=== PATIENT | female | born 1980 | race Caucasian/White ===

== ENCOUNTER 2019-09-09 20:41 | Emergency (ER) | payer OTHER ==
[2019-09-09] MEDS ORDERED: ONDANSETRON 4 MG TAB.RAPDIS PO ONE (20:59)
[2019-09-09] MEDS ORDERED: ASPIRIN 81 MG TABLET, CHEWABLE PO ONE (20:59)
--- NOTE | 2019-09-09 21:01 | ER Document Report ---
ED Medical Screen (RME) - General Chief Complaint: Chest Pain Stated Complaint: CHEST PAIN,SHORTNESS OF BREATH Time Seen by Provider: 09/09/19 20:58 Notes: 38-year-old female presents with intermittent chest pain for the past 2 weeks. Patient states she was at work when it got worse suddenly today. Patient also had associated nausea/vomiting and dizziness which is new today. Patient states she also feels short of breath. Chest pain is central and radiates into her sternum and epigastric abdominal area. Lungs clear to auscultation bilaterally. Regular rate and rhythm. Abdomen soft tenderness to epigastric area. Patient states she still feels nauseous. I have greeted and performed a rapid initial assessment of this patient. A comprehensive ED assessment and evaluation of the patient, analysis of test results and completion of the medical decision making process with be conducted by additional ED providers. TRAVEL OUTSIDE OF THE [place] IN LAST 30 DAYS: No - Related Data Allergies/Adverse Reactions: No Known Allergies Allergy (Unverified 08/25/11 13:31) Past Medical History - Past Medical History Cardiac Medical History: Denies: Hx Hypertension, Hx Pulmonary Embolism, Hx Heart Murmur Pulmonary Medical History: Denies: Hx Asthma, Hx Sleep Apnea, Hx Tuberculosis Neurological Medical History: Denies: Hx Cerebrovascular Accident, Hx Seizures Endocrine Medical History: Denies: Hx Hyperthyroidism, Hx Hypothyroidism Renal/ Medical History: Denies: Hx Kidney Stones, Hx Ovarian Cysts, Hx Pelvic Inflammatory Disease Malignancy Medical History: Denies: Hx Breast Cancer, Hx Cervical Cancer, Hx Ovarian Cancer GI Medical History: Denies: Hx Gastroesophageal Reflux Disease, Hx Hiatal Hernia, Hx Ulcer Musculoskeltal Medical History: Denies Hx Fibromyalgia Psychiatric Medical History: Denies: Hx Bipolar Disorder, Hx Depression, Hx Post Traumatic Stress Disorder, Hx Schizophrenia Traumatic Medical History: Denies: Hx Fractures Infectious Medical History: Denies: Hx HIV Past Surgical History: Reports: Hx Section - X2. Denies: Hx Hysterectomy, Hx Pacemaker - Immunizations Hx Diphtheria, Pertussis, Tetanus Vaccination: Yes Physical Exam - Vital signs Vitals: Temp Pulse Resp BP Pulse Ox 98.5 F 62 18 136/79 H 100 09/09/19 20:45 09/09/19 20:45 09/09/19 20:45 09/09/19 20:45 09/09/19 20:45 Course - Vital Signs Vital signs: Temp Pulse Resp BP Pulse Ox 98.5 F 62 18 136/79 H 100 09/09/19 20:45 09/09/19 20:45 09/09/19 20:45 09/09/19 20:45 09/09/19 20:45
[2019-09-09 21:24] LABS: APPEARANCE,URINE CLEAR; BILIRUBIN,URINE NEGATIVE (NEGATIVE); COLOR,URINE YELLOW; GLUCOSE, URINE NEGATIVE (NEGATIVE); KETONES,URINE NEGATIVE (NEGATIVE); PROTEIN,URINE NEGATIVE (NEGATIVE); URINE SPECIFIC GRAVITY 1.023; UROBILINOGEN,URINE NEGATIVE mg/dL (<2.0)
[2019-09-09 21:28] LABS: ABSOLUTE BASOPHILS # (AUTO) 0.1 10^3/uL (0.0-0.2); ABSOLUTE EOSINOPHILS # (AUTO) 0.3 10^3/uL (0.0-0.6); ABSOLUTE LYMPHOCYTES (AUTO) 3.4 10^3/uL (0.5-4.7); ABSOLUTE MONOCYTES (AUTO) 0.3 10^3/uL (0.1-1.4); ABSOLUTE NEUT (AUTO) 5.2 10^3/uL (1.7-8.2); BASOPHILS % (AUTO) 0.7 % (0-2); EOSINOPHILS % (AUTO) 3.6 % (0-6); HEMATOCRIT 36.8 % (36.0-47.0); HEMOGLOBIN 12.4 g/dL (12.0-15.5); LYMPHOCYTES % (AUTO) 36.4 % (13-45); MEAN CORPUSCULAR HEMOGLOBIN 29.8 pg (27.0-33.4); MEAN CORPUSCULAR HGB CONC 33.7 g/dL (32.0-36.0); MEAN CORPUSCULAR VOLUME 88 fl (80-97); MONOCYTES % (AUTO) 3.4 % (3-13); PLATELET COUNT 379 10^3/uL (150-450); RED BLOOD COUNT 4.16 10^6/uL (3.72-5.28); RED CELL DISTRIBUTION WIDTH 13.6 % (11.5-14.0); SEGMENTED NEUTROPHILS % (AUTO) 55.9 % (42-78); TOTAL CELLS COUNTED % (AUTO) 100 %; WHITE BLOOD COUNT 9.2 10^3/uL (4.0-10.5)
--- NOTE | 2019-09-09 21:43 | RADIOLOGY REPORT (SQ) ---
EXAM DESCRIPTION: XR CHEST 2 VIEWS COMPLETED DATE/TME: 09/09/2019 20:59 CLINICAL HISTORY: 38 years, Female, chest pain EXAM DESCRIPTION: CLINICAL HISTORY: chest pain COMPARISON: None. FINDINGS: Two views of the chest are submitted. Cardiac silhouette appears normal. No focal parenchymal or pleural disease. No acute bony abnormality. There is no significant pulmonary vascular engorgement. IMPRESSION: No evidence of acute cardiopulmonary disease.
[2019-09-09 21:46] LABS: ALBUMIN 4.4 g/dL (3.5-5.0); ALKALINE PHOSPHATASE 53 U/L (38-126); ANION GAP 10 (5-19); ASPARTATE AMINO TRANSFERASE 20 U/L (14-36); BILIRUBIN,DIRECT 0.2 mg/dL (0.0-0.4); BILIRUBIN,TOTAL 0.2 mg/dL (0.2-1.3); BLOOD UREA NITROGEN 16 mg/dL (7-20); CALCIUM 9.6 mg/dL (8.4-10.2); CARBON DIOXIDE 20 mmol/L (22-30); CHLORIDE 109 mmol/L (98-107); GLUCOSE 111 mg/dL (75-110); POTASSIUM 3.9 mmol/L (3.6-5.0); TOTAL PROTEIN 7.5 g/dL (6.3-8.2)
--- NOTE | 2019-09-09 21:52 | ER Document Report ---
ED General - General Chief Complaint: Chest Pain Stated Complaint: CHEST PAIN,SHORTNESS OF BREATH Time Seen by Provider: 09/09/19 20:58 Primary Care Provider: [facility] [Provider Group] - Follow up in 1 week Mode of Arrival: Ambulatory Information source: Patient Notes: 38-year-old female presents emergency department with complaints of chest pain for the past 2 weeks that come and go with nausea vomiting and feelings of dizziness. Patient denies history of cardiac disease. Patient points to her epigastric area and right upper quadrant as the areas of pain. She reports it started off in her chest but now is hurting more in her abdomen. Denies fever diarrhea. Denies pain with void. Denies urinary frequency. She reports the pain sometimes wakes her up at night. Reports decreased appetite. TRAVEL OUTSIDE OF THE [place] IN LAST 30 DAYS: No - HPI Onset: Other - 2 weeks Quality of pain: Achy, Cramping Associated symptoms: Nausea, Vomiting Exacerbated by: Denies Relieved by: Denies Similar symptoms previously: No Recently seen / treated by doctor: No - Related Data Allergies/Adverse Reactions: No Known Allergies Allergy (Unverified 08/25/11 13:31) Past Medical History - General Information source: Patient Last Menstrual Period: last week - Social History Smoking Status: Current Every Day Smoker Chew tobacco use (# tins/day): No Frequency of alcohol use: Occasional Drug Abuse: None Family History: Arthritis, CAD, CVA, DM, Hyperlipidemia, Hypertension, Malignancy, Thyroid Disfunction Patient has suicidal ideation: No Patient has homicidal ideation: No - Medical History Medical History: Negative - Past Medical History Cardiac Medical History: Denies: Hx Hypertension, Hx Pulmonary Embolism, Hx Heart Murmur Pulmonary Medical History: Denies: Hx Asthma, Hx Sleep Apnea, Hx Tuberculosis Neurological Medical History: Denies: Hx Cerebrovascular Accident, Hx Seizures Endocrine Medical History: Denies: Hx Hyperthyroidism, Hx Hypothyroidism Renal/ Medical History: Denies: Hx Kidney Stones, Hx Ovarian Cysts, Hx Pelvic Inflammatory Disease Malignancy Medical History: Denies: Hx Breast Cancer, Hx Cervical Cancer, Hx Ovarian Cancer GI Medical History: Denies: Hx Gastroesophageal Reflux Disease, Hx Hiatal Hernia, Hx Ulcer Musculoskeletal Medical History: Denies Hx Fibromyalgia Psychiatric Medical History: Denies: Hx Bipolar Disorder, Hx Depression, Hx Post Traumatic Stress Disorder, Hx Schizophrenia Traumatic Medical History: Denies: Hx Fractures Infectious Medical History: Denies: Hx HIV Past Surgical History: Reports: Hx Section - X2. Denies: Hx Hysterectomy, Hx Pacemaker - Immunizations Hx Diphtheria, Pertussis, Tetanus Vaccination: Yes Review of Systems - Review of Systems Notes: Review HPI for review of systems., All other systems negative Physical Exam - Vital signs Vitals: Temp Pulse Resp BP Pulse Ox 98.5 F 62 18 136/79 H 100 09/09/19 20:45 09/09/19 20:45 09/09/19 20:45 09/09/19 20:45 09/09/19 20:45 - General General appearance: Alert, Anxious In distress: None - HEENT Head: Normocephalic, Atraumatic Eyes: Normal Conjunctiva: Normal Extraocular movements intact: Yes Pupils: PERRL Ears: Normal External canal: Normal Tympanic membrane: Normal Nasal: Normal Mucous membranes: Normal, Moist Pharynx: Normal Neck: Normal, Supple. No: Lymphadenopathy - Respiratory Respiratory status: No respiratory distress Chest status: Nontender Breath sounds: Normal Chest palpation: Normal - Cardiovascular Rhythm: Regular Heart sounds: Normal auscultation Murmur: No - Abdominal Inspection: Normal Distension: No distension Bowel sounds: Hypoactive Tenderness: Tender, López's sign Organomegaly: No organomegaly Adult front & back diagram: 1 - c/o ruq, epigastric pain - Back Back: Normal - Extremities General upper extremity: Normal ROM General lower extremity: Normal ROM - Neurological Neuro grossly intact: Yes Cognition: Normal Orientation: AAOx4 Holliday Coma Scale Eye Opening: Spontaneous Kamla Coma Scale Verbal: Oriented Kamla Coma Scale Motor: Obeys Commands Holliday Coma Scale Total: 15 Speech: Normal - Psychological Associated symptoms: Normal affect, Normal mood - Skin Skin Temperature: Warm Skin Moisture: Dry Skin Color: Normal Course - Re-evaluation Re-evalutation: 09/09/19 22:11 Patient presents emergency department with complaints of right upper quadrant epigastric pain. Reports the pain started just 2 weeks ago nausea in her abdomen. Denies trends. Has not noticing an increase in pain after eating. Reports the pain wakes her up at night. Lipase 476. Patient very tender in the right upper quad gallbladder ordered. Patient also instructed on n.p.o. - Vital Signs Vital signs: Temp Pulse Resp BP Pulse Ox 98.4 F 62 16 105/66 99 09/10/19 00:09 09/09/19 20:45 09/10/19 00:09 09/10/19 00:09 09/10/19 00:09 09/10/19 02:08 Lipase 423. Ultrasound shows 1.2 gallstone. No evidence of cholecystitis. No fever no vomiting. Patient reports she feels fine now. She was instructed on labs. Instructed on the importance of follow-up with the primary care for referral to surgeon. She was instructed on low-fat diet. Patient reports she does have insurance. She was instructed on the [facility]. She was also instructed to return to the ED for return of pain concerns. She verbalized understanding to all instructions. Chest X-Ray 09/09/19 20:59 IMPRESSION: No evidence of acute cardiopulmonary disease. Abdomen Ultrasound 09/09/19 22:07 IMPRESSION: Cholelithiasis consisting of a nonmobile 1.2 cm calculus in the gallbladder neck. Mild thickening of the gallbladder wall but there is evidence of hyperplastic cholecystosis. Negative sonographic López's sign. Hepatic steatosis. Laboratory 09/09/19 09/09/19 09/09/19 21:05 21:05 21:05 WBC 9.2 RBC 4.16 Hgb 12.4 Hct 36.8 MCV 88 MCH 29.8 MCHC 33.7 RDW 13.6 Plt Count 379 Lymph % (Auto) 36.4 Pierce % (Auto) 3.4 Eos % (Auto) 3.6 Baso % (Auto) 0.7 Absolute Neuts (auto) 5.2 Absolute Lymphs (auto) 3.4 Absolute Monos (auto) 0.3 Absolute Eos (auto) 0.3 Absolute Basos (auto) 0.1 Seg Neutrophils % 55.9 Sodium 139.3 Potassium 3.9 Chloride 109 H Carbon Dioxide 20 L Anion Gap 10 BUN 16 Creatinine 0.65 Est GFR ( Amer) > 60 Est GFR (MDRD) Non-Af > 60 Glucose 111 H Calcium 9.6 Total Bilirubin 0.2 Direct Bilirubin 0.2 Neonat Total Bilirubin Not Reportable Neonat Direct Bilirubin Not Reportable Neonat Indirect Bili Not Reportable AST 20 ALT 21 Alkaline Phosphatase 53 Total Protein 7.5 Albumin 4.4 Lipase 423.6 H Serum HCG, Qual NEGATIVE Urine Color Urine Appearance Urine pH Ur Specific [place] Urine Protein Urine Glucose (UA) Urine Ketones Urine Blood Urine Nitrite (Reflex) Urine Bilirubin Urine Urobilinogen Leukocyte Esterase Rfl Urine RBC (Auto) Urine WBC (Reflex) Squamous Epi Cells Auto Urine Mucus (Auto) Urine Ascorbic Acid 09/09/19 21:05 WBC RBC Hgb Hct MCV MCH MCHC RDW Plt Count Lymph % (Auto) Pierce % (Auto) Eos % (Auto) Baso % (Auto) Absolute Neuts (auto) Absolute Lymphs (auto) Absolute Monos (auto) Absolute Eos (auto) Absolute Basos (auto) Seg Neutrophils % Sodium Potassium Chloride Carbon Dioxide Anion Gap BUN Creatinine Est GFR ( Amer) Est GFR (MDRD) Non-Af Glucose Calcium Total Bilirubin Direct Bilirubin Neonat Total Bilirubin Neonat Direct Bilirubin Neonat Indirect Bili AST ALT Alkaline Phosphatase Total Protein Albumin Lipase Serum HCG, Qual Urine Color YELLOW Urine Appearance CLEAR Urine pH 5.0 Ur Specific [place] 1.023 Urine Protein NEGATIVE Urine Glucose (UA) NEGATIVE Urine Ketones NEGATIVE Urine Blood MODERATE H Urine Nitrite (Reflex) NEGATIVE Urine Bilirubin NEGATIVE Urine Urobilinogen NEGATIVE Leukocyte Esterase Rfl NEGATIVE Urine RBC (Auto) 7 Urine WBC (Reflex) 2 Squamous Epi Cells Auto 3 Urine Mucus (Auto) RARE Urine Ascorbic Acid NEGATIVE - Laboratory Result Diagrams: 09/09/19 21:05 09/09/19 21:05 Laboratory results interpreted by me: 09/09/19 09/09/19 21:05 21:05 Chloride 109 H Carbon Dioxide 20 L Glucose 111 H Lipase 423.6 H Urine Blood MODERATE H - Diagnostic Test Radiology reviewed: Image reviewed, Reports reviewed Discharge - Discharge Clinical Impression: Gallstones, Fatty liver Abdominal pain Qualifiers: Abdominal location: upper abdomen, unspecified Qualified Code(s): R10.10 - Upper abdominal pain, unspecified Cholelithiases Qualifiers: Cholelithiasis location: gallbladder Cholecystitis presence: without cholecystitis Biliary obstruction: without biliary obstruction Qualified Code(s): K80.20 - Calculus of gallbladder without cholecystitis without obstruction Disposition: HOME, SELF-CARE Instructions: Abdominal Pain ([facility]), Antinausea Medication ([facility]), Antispasmodics ([facility]), Gallbladder Disease ([facility]), Low-Fat Diet ([facility]), Surgeon Additional Instructions: *You have been evaluated for abdominal pain, gallstones, cholelithiasis, fatty liver *Take medication as prescribed *Follow low-fat diet- avoid spicy, fatty foods *Follow up with a primary care provider, [facility], within 1 week for referral to surgeon *Return to ED for worsening condition, changes, needs *Return to ED if not better in 24 hours Prescriptions: Dicyclomine HCl [Bentyl 20 mg Tablet] 20 mg PO QID #20 tablet Referrals: [facility] [Provider Group] - Follow up in 1 week
[2019-09-09] MEDS ORDERED: DICYCLOMINE HCL 20 MG TABLET PO ONE (22:07)
--- NOTE | 2019-09-09 23:39 | RADIOLOGY REPORT (SQ) ---
US ABDOMEN LIMITED HISTORY: RUQ abdominal pain COMPARISON: none FINDINGS: Transabdominal sonographic images through the right upper quadrant were performed with grayscale, color and Doppler evaluation. The liver demonstrates increased echogenicity diffusely with the right hepatic lobe measuring 15.9 cm in length. Imaged hepatic and portal veins are patent with normal directional flow. No intrahepatic or extrahepatic biliary ductal dilatation. 2.6-mm common hepatic duct. The gallbladder is adequately distended and contains a shadowing 1.2 cm nonmobile calculus in the gallbladder neck. The gallbladder wall is mildly thickened measuring approximately 4 mm with some comet tail artifact. No pericholecystic fluid. Negative sonographic López's sign. Unremarkable pancreas. The pancreatic tail is obscured by overlying bowel gas. The right kidney measures 10.4 cm in length. No shadowing calculi or right-sided hydronephrosis. No free fluid in Morison's pouch. No abdominal aortic aneurysm. IMPRESSION: Cholelithiasis consisting of a nonmobile 1.2 cm calculus in the gallbladder neck. Mild thickening of the gallbladder wall but there is evidence of hyperplastic cholecystosis. Negative sonographic López's sign. Hepatic steatosis.
[2019-09-09] MEDS ORDERED: ONDANSETRON ODT 4 MG TAB (6 TAB/ER DISP) PO PRN (23:57)
[2019-09-10 00:15] VITALS: BP 105/66
--- NOTE | 2019-09-10 07:30 | EKG REPORT ---
SEVERITY:- NORMAL ECG - SINUS RHYTHM : Confirmed by: Nader Peterson MD 10-Sep-2019 07:29:24
== END 2019-09-10 00:15 | disposition home or self-care (01) ==
LOC: ER 20:41
DX: K80.20 Calculus of gallbladder without cholecystitis without obstruction (principal); K76.0 Fatty (change of) liver, not elsewhere classified; R11.2 Nausea with vomiting, unspecified; R42 Dizziness and giddiness; R10.13 Epigastric pain; R10.11 Right upper quadrant pain; R07.9 Chest pain, unspecified; R63.0 Anorexia; F17.200 Nicotine dependence, unspecified, uncomplicated; Z82.49 Family history of ischemic heart disease and other diseases of the circulatory system
CPT/HCPCS: 93005; 99285; 36415; 83690; 84703; 85025; 80053; 81001; 71046; 76705; 93010; J3490; S0119

== ENCOUNTER 2019-09-23 01:15 | Observation (INO) | payer SELFPAY ==
[2019-09-23 01:55] LABS: ABSOLUTE BASOPHILS # (AUTO) 0.1 10^3/uL (0.0-0.2); ABSOLUTE EOSINOPHILS # (AUTO) 0.5 10^3/uL (0.0-0.6); ABSOLUTE LYMPHOCYTES (AUTO) 3.9 10^3/uL (0.5-4.7); ABSOLUTE MONOCYTES (AUTO) 0.4 10^3/uL (0.1-1.4); ABSOLUTE NEUT (AUTO) 4.5 10^3/uL (1.7-8.2); BASOPHILS % (AUTO) 0.6 % (0-2); EOSINOPHILS % (AUTO) 4.9 % (0-6); HEMATOCRIT 35.8 % (36.0-47.0); HEMOGLOBIN 12.2 g/dL (12.0-15.5); LYMPHOCYTES % (AUTO) 41.8 % (13-45); MEAN CORPUSCULAR HEMOGLOBIN 29.9 pg (27.0-33.4); MEAN CORPUSCULAR VOLUME 88 fl (80-97); MONOCYTES % (AUTO) 4.5 % (3-13); PLATELET COUNT 361 10^3/uL (150-450); RED BLOOD COUNT 4.07 10^6/uL (3.72-5.28); RED CELL DISTRIBUTION WIDTH 13.8 % (11.5-14.0); SEGMENTED NEUTROPHILS % (AUTO) 48.2 % (42-78); TOTAL CELLS COUNTED % (AUTO) 100 %; WHITE BLOOD COUNT 9.4 10^3/uL (4.0-10.5)
[2019-09-23 02:11] LABS: ALKALINE PHOSPHATASE 52 U/L (38-126); ANION GAP 9 (5-19); ASPARTATE AMINO TRANSFERASE 19 U/L (14-36); BILIRUBIN,DIRECT 0.2 mg/dL (0.0-0.4); BILIRUBIN,TOTAL 0.2 mg/dL (0.2-1.3); BLOOD UREA NITROGEN 13 mg/dL (7-20); CALCIUM 9.6 mg/dL (8.4-10.2); CARBON DIOXIDE 21 mmol/L (22-30); CHLORIDE 109 mmol/L (98-107); GLUCOSE 108 mg/dL (75-110); POTASSIUM 4.2 mmol/L (3.6-5.0); TOTAL PROTEIN 7.1 g/dL (6.3-8.2)
[2019-09-23] MEDS ORDERED: OXYCODONE HCL IR 5 MG TABLET PO ONE (02:36)
[2019-09-23] MEDS ORDERED: ONDANSETRON 4 MG TAB.RAPDIS PO ONE (02:37)
--- NOTE | 2019-09-23 03:34 | RADIOLOGY REPORT (SQ) ---
Ultrasound of the right upper quadrant of the abdomen: 09/23/2019 2:31 AM CDT Technique: Multiple grayscale color Doppler images of the right upper quadrant of the abdomen were obtained. Comparison: None available History: 39-year old patient with right upper quadrant abdominal pain. Findings: The visualized portions of the hepatic parenchyma appears mildly echogenic. There is no evidence to suggest intra or extrahepatic ductal dilatation. There is normal directional flow seen within the main portal vein. Cholelithiasis is seen. There is nonspecific gallbladder wall thickening with evidence of adenomyomatosis. The common duct measures 2-3 mm. The right kidney measures up to 10.3 cm in length. The right kidney demonstrates normal cortical echogenicity with no evidence to suggest hydronephrosis. The visualized portions of the IVC, abdominal aorta, and pancreatic head appear normal. No free intraperitoneal fluid is seen. Impression: There is nonspecific gallbladder wall thickening with adenomyomatosis present. Cholelithiasis is seen. The common duct is within normal limits of size.
[2019-09-23] MEDS ORDERED: NORMAL SALINE 1000 ML 1,000 ML IV ONE (03:37)
--- NOTE | 2019-09-23 03:37 | ER Document Report ---
ED General - General Chief Complaint: Epigastric Pain Stated Complaint: UPPER GASTRIC PAIN Time Seen by Provider: 09/23/19 03:31 TRAVEL OUTSIDE OF THE [place] IN LAST 30 DAYS: No - HPI Notes: Patient is a 39-year-old female with a history of cholelithiasis presents complaining of right upper quadrant pain that began last night. Patient states that she did have some nausea and vomiting. Patient states that some foods make the symptoms worse, but overall she has not been eating many solid foods for the past couple weeks. She was evaluated about 2 weeks ago and was told that she needs to schedule an appointment to have her gallbladder taken out. Patient states that she has not schedule an appointment as of yet and her symptoms flared up again. Pain does not radiate. She is urinating normally and having normal bowel movements. Denies any headache, fever, neck pain, URI, sore throat, chest pain, palpitations, syncope, cough, shortness of breath, wheeze, dyspnea, diarrhea, urinary retention, dysuria, hematuria, or rash. - Related Data Allergies/Adverse Reactions: No Known Allergies Allergy (Verified 09/23/19 01:25) Past Medical History - Social History Smoking Status: Current Every Day Smoker Family History: Arthritis, CAD, CVA, DM, Hyperlipidemia, Hypertension, Malignancy, Thyroid Disfunction Patient has suicidal ideation: No Patient has homicidal ideation: No - Past Medical History Cardiac Medical History: Denies: Hx Hypertension, Hx Pulmonary Embolism, Hx Heart Murmur Pulmonary Medical History: Denies: Hx Asthma, Hx Sleep Apnea, Hx Tuberculosis Neurological Medical History: Denies: Hx Cerebrovascular Accident, Hx Seizures Endocrine Medical History: Denies: Hx Hyperthyroidism, Hx Hypothyroidism Renal/ Medical History: Denies: Hx Kidney Stones, Hx Ovarian Cysts, Hx Pelvic Inflammatory Disease Malignancy Medical History: Denies: Hx Breast Cancer, Hx Cervical Cancer, Hx Ovarian Cancer GI Medical History: Denies: Hx Gastroesophageal Reflux Disease, Hx Hiatal Hernia, Hx Ulcer Musculoskeletal Medical History: Denies Hx Fibromyalgia Psychiatric Medical History: Denies: Hx Bipolar Disorder, Hx Depression, Hx Post Traumatic Stress Disorder, Hx Schizophrenia Traumatic Medical History: Denies: Hx Fractures Infectious Medical History: Denies: Hx HIV Past Surgical History: Reports: Hx Section - X2. Denies: Hx Hysterectomy, Hx Pacemaker - Immunizations Hx Diphtheria, Pertussis, Tetanus Vaccination: Yes Review of Systems - Review of Systems -: Yes All other systems reviewed and negative Physical Exam - Vital signs Vitals: Temp Pulse Resp BP Pulse Ox 97.7 F 66 16 137/67 H 99 09/23/19 01:30 09/23/19 01:30 09/23/19 01:30 09/23/19 01:30 09/23/19 01:30 - Notes Notes: PHYSICAL EXAMINATION: GENERAL: Well-appearing, well-nourished and in no acute distress. HEAD: Atraumatic, normocephalic. EYES: Pupils equal round and reactive to light, extraocular movements intact, sclera anicteric, conjunctiva are normal. ENT: Nares patent and without discharge. oropharynx clear without exudates. No tonsilar hypertrophy or erythema. Moist mucous membranes. NECK: Normal range of motion, supple without lymphadenopathy LUNGS: Breath sounds clear to auscultation bilaterally and equal. No wheezes rales or rhonchi. HEART: Regular rate and rhythm without murmurs, rubs, gallops. ABDOMEN: Soft, nondistended abdomen. No guarding, no rebound. Normal bowel sounds present. No CVA tenderness bilaterally. + tenderness RUQ. Musculoskeletal: FROM to passive/active. Strength 5+/5. Extremities: No cyanosis, clubbing, or edema b/l. Peripheral pulses 2+. Capillary refill less than 3 seconds. NEUROLOGICAL: Normal speech, normal gait. PSYCH: Normal mood, normal affect. SKIN: Warm, Dry, normal turgor, no rashes or lesions noted. Course - Re-evaluation Re-evalutation: 09/23/19 03:43 Patient is an afebrile, well-hydrated with 39-year-old female who presents with right upper quadrant pain, cholelithiasis, and possible cholecystitis as there is nonspecific gallbladder wall thickening noted on ultrasound. Vitals are acceptable. PE is otherwise unremarkable. Patient is nontoxic-appearing. I did speak with the surgeon who would like her to remain n.p.o. and start Zosyn. Plan for cholecystectomy. Patient is in agreement with this plan. Labs otherwise unremarkable at this time. - Vital Signs Vital signs: Temp Pulse Resp BP Pulse Ox 97.7 F 66 16 137/67 H 99 09/23/19 01:30 09/23/19 01:30 09/23/19 01:30 09/23/19 01:30 09/23/19 01:30 - Laboratory Result Diagrams: 09/23/19 01:38 09/23/19 01:38 Laboratory results interpreted by me: 09/23/19 09/23/19 01:38 01:38 Hct 35.8 L Chloride 109 H Carbon Dioxide 21 L Lipase 486.3 H Discharge - Discharge Clinical Impression: RUQ pain Condition: Stable Disposition: ADMITTED INPATIENT Admitting Provider: Surgicalist - Dr. Hernandez Unit Admitted: Surgical Floor
[2019-09-23] MEDS ORDERED: PIPERACILLIN/TAZOBACTAM 3.375 GM VIAL IV ONE (03:43)
[2019-09-23] MEDS ORDERED: DEXTROSE 50%-WATER 25 GM/50 ML DISP.SYRIN IV PRN ×2 (05:21)
[2019-09-23] MEDS ORDERED: ONDANSETRON HCL INJ/PF 4 MG/2 ML SDV IV PRN (05:21)
[2019-09-23] MEDS ORDERED: GLUCAGON,HUMAN RECOMB 1 MG INJ SUBCUT PRN (05:21)
[2019-09-23] MEDS ORDERED: DEXTROSE 40% GEL 15 GM TUBE PO PRN ×2 (05:21)
--- NOTE | 2019-09-23 05:41 | PDOC H&P ---
History of Present Illness Admission Date/PCP: 09/23/19 04:02 Patient complains of: Epigastric and right upper quadrant pains radiating to the back History of Present Illness: JOSE MARIA COONEY is a 39 year old female who has been having off and on epigastric and right upper quadrant pains for the past 2 weeks. She was seen at the ED 1- 1/2 weeks ago and told she has gallstones and needed her gallbladder removed on elective basis. Early this morning at 1:30 AM woke up with severe epigastric pains radiating to the right upper quadrant and back with nausea. Denies any fever nor chills. Went to ED where a repeat ultrasound showed gallstones with slightly thickened gallbladder wall. Her lipase is slightly elevated. Past Medical History Cardiac Medical History: Denies: Hypertension, Pulmonary Embolism, Heart Murmur Pulmonary Medical History: Denies: Asthma, Sleep Apnea, Tuberculosis Neurological Medical History: Denies: Seizures Endocrine Medical History: Denies: Hyperthyroidism, Hypothyroidism Malignancy Medical History: Denies: Breast Cancer, Cervical Cancer, Ovarian Cancer GI Medical History: Denies: Gastroesophageal Reflux Disease, Hiatal Hernia Musculoskeltal Medical History: Denies: Fibromyalgia Psychiatric Medical History: Denies: Bipolar Disorder, Depression, Post Traumatic Stress Disorder Hematology: Reports: Anemia - Iron daily Denies: Hemophilia, Sickle Cell Disease Infectious Medical History: Denies: HIV Past Surgical History Past Surgical History: Reports: Section - X2 first in 2000 and the next in 2011 Denies: Hysterectomy, Pacemaker Social History Smoking Status: Current Every Day Smoker - Since age 17 Cigarettes Packs Per Day: 1 Family History Family History: Arthritis, CAD, CVA, DM, Hyperlipidemia, Hypertension, Malignancy, Thyroid Disfunction Parental Family History Reviewed: Yes - Mother has hypothyroidism. Not know much about her father Children Family History Reviewed: No Sibling(s) Family History Reviewed.: No Medication/Allergy Home Medications: Iron 1 tab PO DAILY 08/25/11 -U Capsule 1 tab PO DAILY 08/25/11 Colace 100 mg Capsule 1 cap PO BID 09/02/11 Motrin 800 mg Tablet 1 tab PO Q6HP PRN 09/02/11 Percocet 5-325 mg Tablet 1 - 2 tab PO Q4HP PRN 09/02/11 Prednisone [Sterapred Ds] 1 pkg PO ASDIR PRN 12 Days tab.ds.pk 04/30/15 Baclofen [Baclofen 10 mg Tablet] 10 mg PO ONCE PRN #15 tablet 06/30/16 Dicyclomine HCl [Bentyl 20 mg Tablet] 20 mg PO QID #20 tablet 09/09/19 Allergies/Adverse Reactions: No Known Allergies Allergy (Verified 09/23/19 01:25) Review of Systems Constitutional: PRESENT: as per HPI Gastrointestinal: PRESENT: abdominal pain, nausea Physical Exam Vital Signs: Temp Pulse Resp BP Pulse Ox 98.3 F 65 16 100/61 100 09/23/19 05:28 09/23/19 05:28 09/23/19 05:28 09/23/19 05:28 09/23/19 05:28 Intake & Output 09/21/19 09/22/19 09/23/19 06:59 06:59 06:59 Weight 83.7 kg General appearance: PRESENT: morbidly obese Head exam: PRESENT: atraumatic Eye exam: PRESENT: conjunctiva pink Mouth exam: PRESENT: moist Neck exam: PRESENT: full ROM Respiratory exam: PRESENT: clear to auscultation silverio Cardiovascular exam: PRESENT: RRR Pulses: PRESENT: normal radial pulses Vascular exam: PRESENT: normal capillary refill GI/Abdominal exam: PRESENT: López's sign, soft, tenderness - Epigastric and right upper quadrant Rectal exam: PRESENT: deferred Extremities exam: PRESENT: full ROM Musculoskeletal exam: PRESENT: full ROM Neurological exam: PRESENT: alert, oriented to person, oriented to place, oriented to time, oriented to situation Psychiatric exam: PRESENT: appropriate affect Skin exam: PRESENT: normal color, warm Results Laboratory Results: 09/23/19 01:38 09/23/19 01:38 09/23/19 09/23/19 01:38 01:38 WBC 9.4 RBC 4.07 Hgb 12.2 Hct 35.8 L MCV 88 MCH 29.9 MCHC 34.0 RDW 13.8 Plt Count 361 Seg Neutrophils % 48.2 Sodium 138.6 Potassium 4.2 Chloride 109 H Carbon Dioxide 21 L Anion Gap 9 BUN 13 Creatinine 0.56 Est GFR ( Amer) > 60 Glucose 108 Calcium 9.6 Total Bilirubin 0.2 AST 19 Alkaline Phosphatase 52 Total Protein 7.1 Albumin 4.0 Lipase 486.3 H Assessment & Plan - Diagnosis (1) Acute cholecystitis Is this a current diagnosis for this admission?: Yes - Time Time Spent: 30 to 50 Minutes - Inpatient Certification Medical Necessity: Need For IV Fluids, Need for Pain Control, Need for IV Ant ibiotics, Need for Surgery - Plan Summary Plan Summary: 39-year-old female obese in chronic smoker complaining of off and on epigastric and right upper quadrant pains for the past 2 weeks came in with severe epigastric and right upper quadrant pains at 130 this morning. She admits to having fatty food intolerance and avoids eating greasy food. Denies fever nor chills. She is tender in the epigastric and right upper quadrant areas. Ultrasound showed gallstones with normal LFTs with lipase slightly elevated at around 400. Impression is acute cholecystitis. Gallstone pancreatitis. Plans: CT scan of the abdomen to check on her pancreas. Repeat lipase. Start IV antibiotics Possible laparoscopic cholecystectomy
[2019-09-23] MEDS ORDERED: PIPERACILLIN/TAZOBACTAM 3.375 GM VIAL IV SCH (06:00)
[2019-09-23] MEDS ORDERED: INFLUENZA QUAD (6MOS+) 2019-20 VAC 0.5 ML SYR IM ONE (06:46)
--- NOTE | 2019-09-23 08:30 | RADIOLOGY REPORT (SQ) ---
EXAM DESCRIPTION: CHEST SINGLE VIEW COMPLETED DATE/TIME: 09/23/2019 7:59 am REASON FOR STUDY: SMOKER COMPARISON: 09/09/2019. EXAM PARAMETERS: NUMBER OF VIEWS: One view. TECHNIQUE: Single frontal radiographic view of the chest acquired. RADIATION DOSE: NA LIMITATIONS: None. FINDINGS: LUNGS AND PLEURA: No opacities, masses or pneumothorax. No pleural effusion. MEDIASTINUM AND HILAR STRUCTURES: No masses. Contour normal. HEART AND VASCULAR STRUCTURES: Heart normal in size. Normal vasculature. BONES: No acute findings. HARDWARE: None in the chest. OTHER: No other significant finding. IMPRESSION: NO ACUTE RADIOGRAPHIC FINDING IN THE CHEST. TECHNICAL DOCUMENTATION: JOB ID: [id number] [email or web address]- All Rights Reserved Reading location - IP/workstation name: [email or web address]
[2019-09-23] MEDS: PIPERACILLIN SODIUM/TAZOBACTAM 3.375 GM in NORMAL SALINE 100 ML IV SCH ×3 (10:22→21:42)
[2019-09-23] MEDS: DEXTROSE 5%-LACTATED RINGERS 1,000 ML IV PRN ×2 (10:25→22:33)
[2019-09-23] MEDS ORDERED: ALBUTEROL SULFATE 0.083% NEB 2.5 MG/3 ML AMPUL NEB ONE (11:12)
[2019-09-23 12:16] LABS: APPEARANCE,URINE SLIGHTLY-CLOUDY; BILIRUBIN,URINE NEGATIVE (NEGATIVE); COLOR,URINE YELLOW; GLUCOSE, URINE NEGATIVE (NEGATIVE); KETONES,URINE NEGATIVE (NEGATIVE); LEUKOCYTE ESTERASE,URINE NEGATIVE (NEGATIVE); NITRITE,URINE NEGATIVE (NEGATIVE); PROTEIN,URINE NEGATIVE (NEGATIVE); URINE SPECIFIC GRAVITY 1.017; UROBILINOGEN,URINE NEGATIVE mg/dL (<2.0)
[2019-09-23] MEDS ORDERED: FENTANYL CITRATE INJ/PF 100 MCG/2 ML AMPUL ONE (14:16)
[2019-09-23] MEDS ORDERED: PROPOFOL INJ 200 MG/20 ML VIAL IV ONE (14:17)
[2019-09-23] MEDS ORDERED: MIDAZOLAM 2 MG/2 ML INJ ONE (14:17)
[2019-09-23] MEDS ORDERED: BUPIVACAINE HCL 0.5%-EPI 1:200000 INJ/PF 30 ML VIAL ONE (14:23)
[2019-09-23] MEDS ORDERED: BUPIVACAINE HCL 0.5%-EPI 1:200000 INJ/PF 30 ML VIAL INJ ONE (14:59)
[2019-09-23] MEDS ORDERED: MORPHINE SULFATE 10 MG/ML INJ IV PRN (15:27)
[2019-09-23] MEDS ORDERED: MEPERIDINE HCL/PF INJ 25 MG/1 ML DISP.SYRIN IV PRN (15:27)
[2019-09-23] MEDS ORDERED: PROMETHAZINE HCL INJ 25 MG/1 ML VIAL IV PRN ×2 (15:27)
[2019-09-23] MEDS ORDERED: FENTANYL CITRATE INJ/PF 100 MCG/2 ML AMPUL IV PRN ×3 (15:27)
[2019-09-23] MEDS ORDERED: OXYCODONE-ACETAMINOPHEN 5-325 MG TABLET PO PRN ×2 (15:27)
[2019-09-23] MEDS ORDERED: DIPHENHYDRAMINE HCL 50 MG/ML VIAL IV PRN (15:27)
[2019-09-23] MEDS ORDERED: ONDANSETRON HCL INJ/PF 4 MG/2 ML SDV ONE (16:14)
[2019-09-23] MEDS ORDERED: HYDROMORPHONE HCL INJ/PF 2 MG/ML AMPULE ONE (16:16)
--- NOTE | 2019-09-23 16:28 | Operative Report ---
Operative Report DATE OF SURGERY: 09/23/19 PREOPERATIVE DIAGNOSIS: Acute cholecystitis. Cholelithiasis POSTOPERATIVE DIAGNOSIS: Same OPERATION: Laparoscopic cholecystectomy SURGEON: DEONNA KERNS ANESTHESIA: GA TISSUE REMOVED OR ALTERED: Gallbladder COMPLICATIONS: None ESTIMATED BLOOD LOSS: 20 cc QUANTITATIVE BLOOD LOSS: 20 INTRAOPERATIVE FINDINGS: Thickened gallbladder wall with small amount of edema. At least one big stone in the gallbladder about 1 cm in diameter PROCEDURE: After adequate general anesthesia patient was placed in supine position and the abdomen prepped and draped in the usual sterile fashion. Appropriate timeout was then called. An infraumbilical incision was made fascia identified and grasped with Manuel clamps and divided between the Shannon clamps. The opening in the fascia was then enlarged with hemostat and Felicitas clamp. Next 2 sutures of 0 Vicryl were placed on each side of the Shannon clamp as stay sutures. Clamps are then released and stay sutures lifted up and the [place] trocar inserted through the fascia into the abdominal cavity. CO2 then insufflated to a pressure of 15 mmHg. The camera was then inserted through the [place] trocar and 3 other trochars were placed under direct vision a 12 mm in the subxiphoid and two 5 mm in the right upper quadrant. The gallbladder is noted to be with thickened wall and mild edema. The fundus of the gallbladder was then grasped and lifted over the liver and the infundibulum subsequently grasped and the cystic duct area dissected. After the angle of safety was visualized and the cystic duct was then clipped proximally twice and distal clip close to the gallbladder was also placed and then duct divided between the distal clips. A 60 artery was then clipped and then divided with the use of harmonic calvin. Gallbladder was then taken off the liver bed with the use of harmonic calvin. Gallbladder was then completely removed and placed in an Endobag and pulled out through the umbilical port. There was at least one palpable stone in the gallbladder roughly about 1 cm in diameter. Next the operative site was then inspected and small amount of clot noted and this was then irrigated. No active bleeding was noted however small piece of Surgicel was then placed over the cystic duct area to make sure about the hemostasis. There were some adhesions from the liver towards peritoneum that were lysed with the use of harmonic calvin. All the trochars were then removed and CO2 allowed to come out of the trocar sites. The fascial defect at the infraumbilical area was then closed with a figure of 8 suture using 0 Vicryl and the 2 stay sutures tied together for better closure. Local anesthesia was then infiltrated over the fascia and to the incision sites and the skin level. All the skin incisions were then closed with running subcuticular closure using 4-0 Vicryl undyed. Steri-Strips placed over the operative sites. Needle instrument sponge count were all correct and estimated blood loss about 20 cc. Patient tolerated procedure well brought to recovery room extubated in satisfactory condition.
[2019-09-23] MEDS: FENTANYL CITRATE INJ/PF 100 MCG/2 ML AMPUL ONE ×2 (16:35→16:45)
[2019-09-23] MEDS ORDERED: GLYCOPYRROLATE 1 MG/5 ML VIAL ONE (17:28)
[2019-09-23] MEDS ORDERED: NEOSTIGMINE METHYLSULFATE 10 MG/10 ML VIAL ONE (17:28)
[2019-09-23] MEDS ORDERED: PHENYLEPHRINE HCL INJ/PF 10 MG/1 ML SDV ONE (17:28)
[2019-09-23] MEDS: MORPHINE SULFATE 10 MG/ML INJ IV PRN ×2 (18:19→22:31)
[2019-09-23] MEDS: KETOROLAC TROMETHAMINE INJ/PF 30 MG/1 ML SDV IV SCH (21:42)
[2019-09-24] MEDS: KETOROLAC TROMETHAMINE INJ/PF 30 MG/1 ML SDV IV SCH (05:52)
[2019-09-24] MEDS: PIPERACILLIN SODIUM/TAZOBACTAM 3.375 GM in NORMAL SALINE 100 ML IV SCH (05:52)
--- NOTE | 2019-09-24 07:34 | PDOC DISCHARGE SUMMARY ---
General - Admit/Disc Date/PCP Admission Date/Primary Care Provider: 09/23/19 04:02 Discharge Date: 09/24/19 - Discharge Diagnosis Final Diagnosis: Acute cholecystitis Cholelithiasis - Assessment Summary: Patient underwent laparoscopic cholecystectomy on 09/23/2019 for acute cholecystitis and cholelithiasis. Postoperatively she did very well discharged on 09/24/2019 - Additional Information Resuscitation Status: Full Code Discharge Diet: Regular Discharge Activity: No Lifting Over 10 Pounds - X2 weeks Referrals: [facility] [Provider Group] Home Medications: No Home Medications 09/23/19 History of Present Illiness History of Present Illness: JOSE MARIA COONEY is a 39 year old female who has been having off and on epigastric and right upper quadrant pains for the past 2 weeks. She was seen at the ED 1- 1/2 weeks ago and told she has gallstones and needed her gallbladder removed on elective basis. Early this morning at 1:30 AM woke up with severe epigastric pains radiating to the right upper quadrant and back with nausea. Denies any fever nor chills. Went to ED where a repeat ultrasound showed gallstones with slightly thickened gallbladder wall. Her lipase is slightly elevated. Hospital Course Hospital Course: 39-year-old female with fatty food intolerance noted severe epigastric and right upper quadrant pains prior to admission 09/23/2019. Ultrasound showed gallstones with thickened gallbladder wall. Patient underwent laparoscopic cholecystectomy on 09/23/2019. Postoperatively she did very well and discharged the next day 09/24/2019 Physical Exam Vital Signs: Temp Pulse Resp BP Pulse Ox 98.2 F 78 16 102/53 L 99 09/23/19 22:30 09/23/19 22:30 09/23/19 22:30 09/23/19 22:30 09/23/19 22:30 Intake & Output 09/23/19 09/24/19 09/25/19 06:59 06:59 06:59 Intake Total 350 3260 Output Total 25 Balance 350 3235 Weight 83 kg 82.1 kg GI/Abdominal exam: PRESENT: soft, tenderness - Right upper quadrant and epigastric areas Results Laboratory Results: WBC 9.4 10^3/uL (4.0-10.5) 09/23/19 01:38 RBC 4.07 10^6/uL (3.72-5.28) 09/23/19 01:38 Hgb 12.2 g/dL (12.0-15.5) 09/23/19 01:38 Hct 35.8 % (36.0-47.0) L 09/23/19 01:38 MCV 88 fl (80-97) 09/23/19 01:38 MCH 29.9 pg (27.0-33.4) 09/23/19 01:38 MCHC 34.0 g/dL (32.0-36.0) 09/23/19 01:38 RDW 13.8 % (11.5-14.0) 09/23/19 01:38 Plt Count 361 10^3/uL (150-450) 09/23/19 01:38 Lymph % (Auto) 41.8 % (13-45) 09/23/19 01:38 Sequoyah % (Auto) 4.5 % (3-13) 09/23/19 01:38 Eos % (Auto) 4.9 % (0-6) 09/23/19 01:38 Baso % (Auto) 0.6 % (0-2) 09/23/19 01:38 Absolute Neuts (auto) 4.5 10^3/uL (1.7-8.2) 09/23/19 01:38 Absolute Lymphs (auto) 3.9 10^3/uL (0.5-4.7) 09/23/19 01:38 Absolute Monos (auto) 0.4 10^3/uL (0.1-1.4) 09/23/19 01:38 Absolute Eos (auto) 0.5 10^3/uL (0.0-0.6) 09/23/19 01:38 Absolute Basos (auto) 0.1 10^3/uL (0.0-0.2) 09/23/19 01:38 Seg Neutrophils % 48.2 % (42-78) 09/23/19 01:38 Sodium 138.6 mmol/L (137-145) 09/23/19 01:38 Potassium 4.2 mmol/L (3.6-5.0) 09/23/19 01:38 Chloride 109 mmol/L (98-107) H 09/23/19 01:38 Carbon Dioxide 21 mmol/L (22-30) L 09/23/19 01:38 Anion Gap 9 (5-19) 09/23/19 01:38 BUN 13 mg/dL (7-20) 09/23/19 01:38 Creatinine 0.56 mg/dL (0.52-1.25) 09/23/19 01:38 Est GFR ( Amer) > 60 (>60) 09/23/19 01:38 Est GFR (MDRD) Non-Af > 60 (>60) 09/23/19 01:38 Glucose 108 mg/dL (75-110) 09/23/19 01:38 Calcium 9.6 mg/dL (8.4-10.2) 09/23/19 01:38 Total Bilirubin 0.2 mg/dL (0.2-1.3) 09/23/19 01:38 Direct Bilirubin 0.2 mg/dL (0.0-0.4) 09/23/19 01:38 Neonat Total Bilirubin Not Reportable 09/23/19 01:38 Neonat Direct Bilirubin Not Reportable 09/23/19 01:38 Neonat Indirect Bili Not Reportable 09/23/19 01:38 AST 19 U/L (14-36) 09/23/19 01:38 ALT 20 U/L (<35) 09/23/19 01:38 Alkaline Phosphatase 52 U/L (38-126) 09/23/19 01:38 Total Protein 7.1 g/dL (6.3-8.2) 09/23/19 01:38 Albumin 4.0 g/dL (3.5-5.0) 09/23/19 01:38 Lipase 258.0 U/L (23-300) 09/23/19 06:52 Urine Color YELLOW 09/23/19 12:00 Urine Appearance SLIGHTLY-CLOUDY 09/23/19 12:00 Urine pH 7.0 (5.0-9.0) 09/23/19 12:00 Ur Specific Commerce 1.017 09/23/19 12:00 Urine Protein NEGATIVE mg/dL (NEGATIVE) 09/23/19 12:00 Urine Glucose (UA) NEGATIVE mg/dL (NEGATIVE) 09/23/19 12:00 Urine Ketones NEGATIVE mg/dL (NEGATIVE) 09/23/19 12:00 Urine Blood NEGATIVE (NEGATIVE) 09/23/19 12:00 Urine Nitrite NEGATIVE (NEGATIVE) 09/23/19 12:00 Urine Bilirubin NEGATIVE (NEGATIVE) 09/23/19 12:00 Urine Urobilinogen NEGATIVE mg/dL (<2.0) 09/23/19 12:00 Ur Leukocyte Esterase NEGATIVE (NEGATIVE) 09/23/19 12:00 Urine WBC (Auto) 0 /HPF 09/23/19 12:00 Urine RBC (Auto) 1 /HPF 09/23/19 12:00 Squamous Epi Cells Auto 6 /HPF 09/23/19 12:00 Urine Mucus (Auto) RARE /LPF 09/23/19 12:00 Urine Ascorbic Acid NEGATIVE (NEGATIVE) 09/23/19 12:00 Urine HCG, Qual NEGATIVE (NEGATIVE) 09/23/19 12:00 Impressions: Chest X-Ray 09/23/19 00:00 IMPRESSION: NO ACUTE RADIOGRAPHIC FINDING IN THE CHEST. Plan Health Concerns: Patient is borderline morbidly obese. 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
[2019-09-24 08:59] VITALS: BP 106/62
== END 2019-09-24 09:34 | disposition home or self-care (01) ==
LOC: ER 01:15 → EH 04:02 → INTOOBSV 04:02 → 4S 05:42
PROVIDERS: ADMIT Surgery; ATTEND Surgery
DX: K80.10 Calculus of gallbladder with chronic cholecystitis without obstruction (principal); E66.01 Morbid (severe) obesity due to excess calories; F17.200 Nicotine dependence, unspecified, uncomplicated
CPT/HCPCS: 47562; 99285; 36415; 83690; 85025; 81025; 80053; 81001; 88304 ×2; 71045; 76705; 00790; G0378 ×3; J2250; J3490 ×2; S0119; J3010; J1885 ×2; J2270; J2710; J1170; J2370; J2405; J7121; J7050 ×2; J7030; J2704; J2543 ×2; 790